=== PATIENT | male | born 1985 | race Caucasian/White ===

== ENCOUNTER 2024-01-23 16:13 | Observation (INO) | payer OTHER ==
[~2024-01-23] VITALS: Ht 188 cm; Wt 86.2 kg
[2024-01-23] MEDS ORDERED: Calcium Carbonate 500 MG Tab Chew PO ONE (18:55)
[2024-01-24] MEDS ORDERED: Mag Hydrox/AL Hydrox/Simeth 30 ML UDC PO ONE (01:25)
== END 2024-01-24 13:44 ==
LOC: ER 16:13 → EOR 16:14
PROVIDERS: ADMIT Emergency Medicine
DX: F32.A Depression, unspecified (principal); R45.851 Suicidal ideations; F15.10 Other stimulant abuse, uncomplicated
CPT/HCPCS: 99285-25; A9270; G0378